=== PATIENT | female | born 1970 | race Caucasian/White ===

== ENCOUNTER 2018-01-22 07:37 | Outpatient (CLI) | payer OTHER | END 2018-01-22 17:00 | disposition home or self-care (01) | LOC: SONOGRAMA 07:37 → MAMO-SONO 07:45 → SONOGRAMA 17:00 | DX: R31.9 Hematuria, unspecified (principal) ==

== ENCOUNTER 2019-05-13 08:25 | Outpatient (CLI) | payer OTHER | END 2019-05-13 08:27 | disposition home or self-care (01) | LOC: RAD 08:25 | DX: I10 Essential (primary) hypertension (principal); M54.2 Cervicalgia; M54.6 Pain in thoracic spine ==